=== PATIENT | female | born 1970 ===

== ENCOUNTER 2024-12-18 10:51 | Outpatient (CLI) | payer OTHER | END 2024-12-18 10:52 | disposition home or self-care (01) | LOC: BICRAD 10:51 | PROVIDERS: ATTEND Student in an Organized Health Care Education/Training Program | DX: M13.0 Polyarthritis, unspecified (principal); M41.9 Scoliosis, unspecified; M47.816 Spondylosis without myelopathy or radiculopathy, lumbar region | CPT/HCPCS: 72100 ==